=== PATIENT | male | born 1950 | race Caucasian/White ===

== ENCOUNTER → 2016-09-03 12:44 | Outpatient (CLI) | payer MEDICARE, OTHER ==
[~2016-09-03 12:44] MED LIST: ALEVE220 MG PO; CELEXA20 MG PO; COZAAR100 MG PO; CRESTOR20 MG PO; CYPROHEPTADINE H4 MG PO; FISH OIL 1,2001 CAP PO; GINKGO BILOBA120 MG PO; GLUCOSAMINE & C1 CAP PO; MULTIPLE VITAMI1 TA1 PO; NORCO 7.5/325 T1 TA1 PO; PYRIDOXINE HCL100 MG PO; REQUIP0.5 MG PO; VITAMIN B-12500 MC1 PO; [UNRECOGNIZED DRUG - OTHER]
[2016-10-20 05:59] VITALS: BMI 30.7
== END | disposition home or self-care (01) ==
LOC: D.MRI 12:44
DX: G56.03 Carpal tunnel syndrome, bilateral upper limbs (principal); M25.532 Pain in left wrist; M25.531 Pain in right wrist

== ENCOUNTER 2016-10-20 05:21 | Day surgery (SDC) | payer MEDICARE, OTHER ==
[2016-10-19 10:14] LABS: HEMATOCRIT 43.8 % (42.0-54.0); HEMOGLOBIN 15.1 g/dL (13.5-17.5); MCH 30.4 pg (26.0-34.0); MCHC 34.5 g/dL (31.0-37.0); MCV 88.1 fL (80.0-100.0); MEAN PLATELET VOLUME 11.3 fL (7.4-10.4); RBC 4.97 10x6/uL (4.20-6.10); RDW 14.3 % (11.5-14.5); WBC 6.1 10x3/uL (4.8-10.8)
[~2016-10-20] VITALS: Ht 172.7 cm; Wt 91.6 kg
--- NOTE | ~2016-10-20 | OP ---
PATIENT NAME: DELVIN GOMES MEDICAL RECORD: [id number] :46 LOCATION:[facility] ADMISSION DATE: SURGEON: GWYN PIKE MD DATE OF OPERATION: 10/20/2016 PREOPERATIVE DIAGNOSIS: Right carpal tunnel syndrome. POSTOPERATIVE DIAGNOSIS: Right carpal tunnel syndrome. PROCEDURE PERFORMED: Right carpal tunnel release. SURGEON: Davi Pike MD ANESTHESIA: TIVA local. CONDITION: He tolerated the procedure well, was transferred to the recovery room in stable condition at termination of the procedure. INDICATIONS: This is a very pleasant 66-year-old gentleman with numbness and tingling in his median nerve distribution. The exam and the studies all consistent with carpal tunnel. We discussed risks, benefits, and alternatives of surgery. He understood and wished to proceed. We discussed blood loss, scar, pain, need for further procedure, anesthesia risk, continued numbness and tingling, continued pain in the palm. He understood and wished to proceed. OPERATIVE REPORT: The patient was taken to the operating room and placed in supine position. TIVA anesthesia was obtained. His right hand was confirmed to be the correct hand, following which he was prepped and draped in normal fashion. The procedure was begun by infiltrating the carpal tunnel area with some 0.25% Marcaine and 1% lidocaine plain. I then proceeded to make an incision on the radial side of his flexed down ring finger. This was taken down. The transverse carpal ligament was identified. A hemostat was placed below it. It was then transected slowly down onto the hemostat visualizing the transection. The nerve was protected. At the juncture, it was all the way down into the canal then I have visualized the median nerve protected it and did cut some of the fascia up and ligament up on to the wrist crease. I then irrigated and verified the nerve to be intact, following which I irrigated, then closed with 2-0 Vicryl, then 3-0 Prolene, was placed in a volar splint, awakened and transferred to the recovery room in stable condition, having tolerated the procedure well. TRANSINT:[id number] Voice Confirmation ID: [id number] DOCUMENT ID: [id number] GWYN PIKE MD CC: [id number] DICTATION DATE: 10/20/16925 MOBILE PARAMEDICAL EXAMINER: 10/20/161816 [facility] 10/20/16 [facility] [address] [place] [address]
[~2016-10-20 05:21] MED LIST changes: -ALEVE220 MG PO; -CELEXA20 MG PO; -COZAAR100 MG PO; -CYPROHEPTADINE H4 MG PO; -FISH OIL 1,2001 CAP PO; -GINKGO BILOBA120 MG PO; -GLUCOSAMINE & C1 CAP PO; -MULTIPLE VITAMI1 TA1 PO; -NORCO 7.5/325 T1 TA1 PO; -PYRIDOXINE HCL100 MG PO; -REQUIP0.5 MG PO; -VITAMIN B-12500 MC1 PO; -[UNRECOGNIZED DRUG - OTHER]
[2016-10-20] MEDS ORDERED: REQUIP0.5 MG PO (05:53)
[2016-10-20] MEDS ORDERED: COZAAR100 MG PO (05:53)
[2016-10-20] MEDS ORDERED: CELEXA20 MG PO (05:54)
[2016-10-20] MEDS ORDERED: CYPROHEPTADINE H4 MG PO (05:54)
[2016-10-20] MEDS ORDERED: [UNRECOGNIZED DRUG - OTHER] (05:55)
[2016-10-20] MEDS ORDERED: VITAMIN B-12500 MC1 PO (05:56)
[2016-10-20] MEDS ORDERED: MULTIPLE VITAMI1 TA1 PO (05:56)
[2016-10-20] MEDS ORDERED: PYRIDOXINE HCL100 MG PO (05:57)
[2016-10-20] MEDS ORDERED: GLUCOSAMINE & C1 CAP PO (05:57)
[2016-10-20] MEDS ORDERED: GINKGO BILOBA120 MG PO (05:58)
[2016-10-20] MEDS ORDERED: FISH OIL 1,2001 CAP PO (05:58)
[2016-10-20 05:59] VITALS: BP 124/65; Ht 172.7 cm; Wt 91.6 kg
[2016-10-20] MEDS ORDERED: ALEVE220 MG PO (05:59)
[2016-10-20] MEDS ORDERED: NORCO 7.5/325 T1 TA1 PO (07:44)
--- NOTE | 2016-10-20 07:46 | NUR ---
0726-RECEIVED PT FROM OR AWAKE AND ALERT VSS NO DISTRESS. RIGHT HAND BANDAGE CDI WITHOUT ANY DRAINAGE NOTED. PT STATES HIS HAND IS NUMB, BRISK CAP REFILL. PT DENIES N/V. FULL LIQUID TRAY GIVEN. AT BEDSIDE WILL CONTINUE TO MONITOR
--- NOTE | 2016-10-20 08:58 | NUR ---
0830 IV DC WITH CATHER TIP INTACT
== END 2016-10-20 08:45 | disposition home or self-care (01) ==
LOC: D.OPS 05:21 → D.PAN 07:00 → D.OPS 08:45 → D.PAN 11:45 → D.OPS 11:45
PROVIDERS: Anesthesiology
DX: G56.01 Carpal tunnel syndrome, right upper limb (principal)

== ENCOUNTER → 2017-03-29 08:03 | Outpatient (CLI) | payer MEDICARE, OTHER | END | disposition home or self-care (01) | LOC: D.CT 08:03 | DX: R91.8 Other nonspecific abnormal finding of lung field (principal) ==

== ENCOUNTER → 2018-03-17 07:32 | Outpatient (CLI) | payer MEDICARE, OTHER ==
[2016-10-20 05:59] VITALS: BMI 30.7
[~2018-03-17 07:32] MED LIST changes: +ALEVE220 MG PO; +CELEXA20 MG PO; +COZAAR100 MG PO; +CYPROHEPTADINE H4 MG PO; +FISH OIL 1,2001 CAP PO; +GINKGO BILOBA120 MG PO; +GLUCOSAMINE & C1 CAP PO; +MULTIPLE VITAMI1 TA1 PO; +NORCO 7.5/325 T1 TA1 PO; +PYRIDOXINE HCL100 MG PO; +REQUIP0.5 MG PO; +VITAMIN B-12500 MC1 PO; +[UNRECOGNIZED DRUG - OTHER]
== END | disposition home or self-care (01) ==
LOC: D.MRI 07:32
DX: M54.16 Radiculopathy, lumbar region (principal)